=== PATIENT | female | born 1940 | race Caucasian/White ===

== ENCOUNTER → 2016-12-10 | Outpatient (CLI) | payer OTHER ==
[2016-12-10 12:18] LABS: HEMOGLOBIN A1C 10.96 % (4.2-6.0); MEAN BLOOD GLUCOSE (CALC) 278.968 mg/dL
== END ==
LOC: MOB LAB 10:51
PROVIDERS: ATTEND Family Medicine
DX: E11.9 Type 2 diabetes mellitus without complications (principal)
CPT/HCPCS: 83036

== ENCOUNTER → 2017-01-26 | Outpatient (CLI) | payer OTHER | LOC: MMPC 09:00 | PROVIDERS: ATTEND Family Medicine | DX: E11.9 Type 2 diabetes mellitus without complications (principal); R41.3 Other amnesia; N39.41 Urge incontinence | CPT/HCPCS: 99213; G0463 ==

== ENCOUNTER → 2017-01-28 | Outpatient (CLI) | payer OTHER ==
[2017-01-28 15:18] LABS: HEMOGLOBIN A1C 9.08 % (4.2-6.0)
== END ==
LOC: LAB 14:47
PROVIDERS: ATTEND Family Medicine
DX: E11.9 Type 2 diabetes mellitus without complications (principal)
CPT/HCPCS: 36415; 83036